=== PATIENT | male | born 1955 | race Caucasian/White ===

== ENCOUNTER → 2018-11-30 11:09 | Outpatient (CLI) | payer MEDICARE, BC, SELFPAY ==
[2018-11-30 14:11] LABS: Alanine Aminotransferase 26 U/L (12-78); Albumin Level 3.6 gm/dL (3.4-5.0); Albumin/Globulin Ratio 1.2 (1.1-1.8); Alkaline Phosphatase 63 U/L (46-116); Anion Gap 9.8 mEq/L (5-15); Aspartate Amino Transferase 15 U/L (15-37); Bilirubin,Total 0.5 mg/dL (0.2-1.0); Blood Urea Nitrogen 11 mg/dL (7-18); Calcium 8.5 mg/dL (8.5-10.1); Carbon Dioxide 31 mmol/L (21.0-32.0); Chloride 105 mmol/L (98-107); Chol/HDL Ratio 2.8 (1-3.5); Cholesterol 127 mg/dL (140-200); Creatinine,Serum 0.94 mg/dL (0.70-1.30); Estimated Glomerular Filt Rate 81 ml/min (>60); GFR (African American) 98 ML/MIN (>60); Globulin 3.1 gm/dl (1.3-3.2); Glucose 105 mg/dL (74-106); HDL Cholesterol 46 mg/dL (27-67); LDL Cholesterol 67 mg/dL (0-130); Potassium 3.8 mmoL/L (3.5-5.1); Sodium 142 mmol/L (136-145); Total Protein,Serum 6.7 gm/dL (6.4-8.2); Triglycerides 68 mg/dL (30-200); VLDL Cholesterol 14 mg/dL (0-40)
== END ==
PROVIDERS: PCP Family Medicine; Visit Provider Family Medicine
DX: I10 Essential (primary) hypertension (principal); E78.5 Hyperlipidemia, unspecified
CPT/HCPCS: 36415; 80053; 80061

== ENCOUNTER → 2021-04-12 14:45 | Outpatient (CLI) | payer MEDICARE, BC, SELFPAY ==
--- NOTE | 2021-04-12 14:55 | XR_ITS ---
PROCEDURE: XR FINGER RT MIN 2V CLINICAL INDICATION: FINGER PAIN, RT COMPARISON: No exams were available for comparison FINDINGS: No fracture or dislocation. There is normal mineralization. The joint spaces are well-preserved. No significant degenerative/arthritic changes. No erosive changes evident. Other findings:Incidental note is made of a small sub cortical cystic area involving the base and ulnar aspect of the 5th metacarpal measuring approximately 3 x 1 mm. The coarse clinical significance. Please correlate as the patient's area of pain or tenderness. IMPRESSION: Tiny subcortical cystic area in the proximal and ulnar aspect of the 5th metacarpal of questionable clinical significance otherwise negative Dictated by: Les Cummings MD 04/12/2021 15:22 Les Cummings MD in [place] 04/12/2021 15:22
== END ==
PROVIDERS: PCP Family Medicine; Visit Provider Family Medicine
DX: M79.644 Pain in right finger(s) (principal)
CPT/HCPCS: 73140

== ENCOUNTER → 2021-04-17 09:28 | Outpatient (CLI) | payer MEDICARE, BC, SELFPAY ==
[2021-04-17 10:42] LABS: Alanine Aminotransferase 19 U/L (12-78); Albumin Level 4.1 g/dl (3.5-5.0); Albumin/Globulin Ratio 1.5 (1.1-1.8); Alkaline Phosphatase 61 U/L (38-126); Anion Gap 7.4 mEq/L (5-15); Aspartate Amino Transferase 28 U/L (17-59); Bilirubin,Total 0.6 mg/dl (0.2-1.3); Blood Urea Nitrogen 10 mg/dl (9-20); Calcium 9.7 mg/dl (8.4-10.2); Carbon Dioxide 34 mmol/L (22.0-30.0); Chloride 102 mmol/L (98-107); Chol/HDL Ratio 2.6 (1-3.5); Cholesterol 141 mg/dl (140-200); Estimated Glomerular Filt Rate 96 ml/min (>60); GFR (African American) 117 ML/MIN (>60); Globulin 2.8 g/dL (1.3-3.2); Glucose 104 mg/dl (74-100); HDL Cholesterol 54 mg/dl (40-60); Potassium 4.4 mmoL/L (3.5-5.1); Sodium 139 mmol/L (136-145); Total Protein,Serum 6.9 g/dl (6.3-8.2); Triglycerides 75 mg/dl (30-150); VLDL Cholesterol 15 mg/dL (0-40)
[2021-04-17 10:53] LABS: Direct LDL Cholesterol 67.88 mg/dL (100-129)
[2021-04-17 11:12] LABS: Prostate Specific Ag Screen 1.5 ng/ml (0.0-4.0)
== END ==
PROVIDERS: Visit Provider Family Medicine
DX: I10 Essential (primary) hypertension (principal); E78.5 Hyperlipidemia, unspecified; Z12.5 Encounter for screening for malignant neoplasm of prostate
CPT/HCPCS: 36415; 80053; 80061; G0103

== ENCOUNTER 2023-10-28 08:31 | Emergency (ER) | payer MEDICARE, BC, SELFPAY ==
[2023-10-28 08:45] VITALS: BP 131/83; PULSE 76; RESP 18; TEMP 36.7; O2SAT 99; BMI 28.0
--- NOTE | 2023-10-28 09:15 | EXP.UTC ---
Discharge Plan Disposition Patient Disposition: Home, Self-Care Condition: Good Prescriptions Prescriptions: New amoxicillin-pot clavulanate [Augmentin] 500-125 mg tablet 1 tab PO TID 10 Days Qty: 30 0RF mupirocin 2 % ointment 1 applic topical BID Qty: 15 0RF No Action simvastatin 40 mg tablet 40 mg PO DAILY lisinopril-hydrochlorothiazide 10-12.5 mg tablet 1 tab PO DAILY Patient Comments: TAKE 1 TABLET BY MOUTH EVERY DAY Referrals Follow up/Referrals: Reed Vu MD [Primary Care Provider] - See instructions Activity Restrictions/Add. Instructions Additional Instructions/Restrictions: monitor for s/s of infection if worsen return antibiotics as ordered Clinical Impressions Clinical Impression: Cat scratch of hand Instructions Patient Instructions: DI for Cat Scratch Disease/Fever, Tetanus, Diphtheria, and Pertussis Vaccine Discharge ED Provider: Abebe ([facility])Lisy [facility] [place] HPI General Stated complaint: cat scratch left hand Mode of Arrival: Ambulatory Source of Information: Patient Limitations: No Limitations Time Seen by Provider: 10/28/23 09:15 Description of Symptoms (Recalled from Triage Doc. by RN): PATIENT C/O CAT SCRATCH TO LEFT HAND YESTERDAY HEENT Symptoms (Recalled from RN notes): No Resp Symptoms (Recalled from RN notes): No Skin Symptoms (Recalled from RN notes): Yes MS Symptoms (Recalled from RN notes): No Functional Status (Recalled from RN notes): WNL History of Present Illness Provider Complaint: 67 yr old male presents for cat scratch to left hand Related Data Home Medications Medication Instructions Recorded Confirmed lisinopril 10 1 tab PO DAILY 10/28/23 10/28/23 mg-hydrochlorothiazide 12.5 mg tablet simvastatin 40 mg tablet 40 mg PO DAILY 10/28/23 10/28/23 Previous Rx's Medication Instructions Recorded amoxicillin 500 mg-potassium 1 tab PO TID 10 days #30 tabs 10/28/23 clavulanate 125 mg tablet (Augmentin) mupirocin 2 % topical ointment 1 applic topical BID #15 grams 10/28/23 Allergies Allergy/AdvReac Type Severity Reaction Status Date / Time No Known Drug Allergies Allergy Unknown Verified 10/28/23 09:00 [NKDA] Worker's Comp Is this a Worker's Comp case?: No [facility] Disclaimer: The information contained in this section may have been updated after the patient was seen, as this information can be updated by other users. Medical History , CURRICULUM AND ASSESSMENT COORDINATOR) Hyperlipidemia Hypertension Social History , CURRICULUM AND ASSESSMENT COORDINATOR) Smoking Status: Smoker, status unknown alcohol intake: never current occupational status: retired Travel in the last 8 weeks: None ROS Obtained: Yes All systems reviewed & no additional complaints except as documented Constitutional Constitutional: Reports system reviewed and no additional complaints, except as documented Eyes Eyes: Reports system reviewed and no additional complaints, except as documented ENT Ears, Nose, Mouth, and Throat: Reports system reviewed and no additional complaints, except as documented Cardiovascular Cardiovascular: Reports system reviewed and no additional complaints, except as documented Respiratory Respiratory: Reports system reviewed and no additional complaints, except as documented Gastrointestinal Gastrointestingal: Reports system reviewed and no additional complaints, except as documented Musculoskeletal Musculoskeletal: Reports system reviewed and no additional complaints, except as documented Integumentary/Breasts Skin/Breast: Reports system reviewed and no additional complaints, except as documented, Reports as per HPI, Reports wounds and Reports other Neurologic Neurologic: Reports system reviewed and no additional complaints, except as documented Endocrine Endocrine: Reports system reviewed and no additional complaints, except as documented Hematologic/Lymphatic Henatologic/Lymphatic: Reports system reviewed and no additional complaints, except as documented Allergic/Immunologic Allergic/Immunologic: Reports system reviewed and no additional complaints, except as documented Physical Exam General General appearance: alert and in no apparent distress Head Head exam: atraumatic Eye Eye exam: Present normal appearance and PERRL ENT ENT exam: Present normal exam, normal oropharynx, mucous membranes moist and TM's normal bilaterally Respiratory Respiratory exam: Present normal lung sounds bilaterally Cardiovascular Cardiovascular exam: Present regular rate and normal rhythm Expanded Upper Extremity Exam Left: Hand L/R back image: 1. small laceration 2. redness Neurological Exam Neurological exam: Present alert and oriented X3 Skin Skin exam: Present other Medical Decision Making Medical Records Medical records reviewed: Yes I reviewed the patient's medical records. Danny Inquiry Pt receiving controlled substance: No Danny was queried for this patient: No Vital Signs: 10/28/23 08:45 Temperature 98.1 F Temperature Source Oral Pulse Rate [Left Brachial] 76 Respiratory Rate 18 Blood Pressure [Left Arm] 131/83 Blood Pressure Mean [Left Arm] 99 Blood Pressure Source [Left Arm] Automatic Cuff Blood Pressure Position [Left Arm] Sitting 02 Sat by Pulse Oximetry 99 Oxygen Delivery Method Room Air Lab Data Lab results reviewed: Yes I reviewed the patient's lab results.
[2023-10-28] MEDS: TET/DIPHTH/PERT-ADULT 0.5ML SYRINGE 0.5 ML IM (09:30)
[2023-10-28 09:32] VITALS: BP 131/83; PULSE 76; RESP 18; TEMP 36.7; O2SAT 99
== END 2023-10-28 09:40 | disposition home or self-care (01) ==
PROVIDERS: Emergency Provider Nurse Practitioner Family; PCP Family Medicine
DX: S60.512A Abrasion of left hand, initial encounter (principal); W55.03XA Scratched by cat, initial encounter; Z23 Encounter for immunization; F17.210 Nicotine dependence, cigarettes, uncomplicated; I10 Essential (primary) hypertension; E78.5 Hyperlipidemia, unspecified
CPT/HCPCS: 90471; 90715; 99204; 99212; G0463

== ENCOUNTER 2024-12-16 11:50 | Outpatient (CLI) | payer MEDICARE, SELFPAY ==
--- OUTSIDE RECORDS SUMMARY | 2024-12-16 11:52 | XMS_ITS ---
Author Organization Unknown Vital Signs BpStanding BpSitting BpSupine Date Temperature HeartRate Weight Hei ght Spo2 Respiration Bmi HeadCircumference FieldCount TimeRecorded NeckCircumferen ce WaistCircumference Pulse 130/80 09/17 00:00 :00 98.6 89 149,0 5,6 24.0 5 6 12/11/2024 13:30:00 128/72 03/26 00:00 :00 98.4 75 153,0 5,6 24.6 9 6 12/11/2024 13:30:00
--- NOTE | 2024-12-16 11:54 | XR_ITS ---
FINAL REPORT CLINICAL HISTORY: PAIN OF RIGHT FINGER -middle at MCP joint COMPARISON: None FINDINGS: AP, lateral and oblique views of the right hand were obtained. There is no prior exam for comparison. There is no acute fracture or dislocation. Mild multijoint degenerative changes present. The soft tissues are normal. IMPRESSION: Mild multijoint degenerative change, with no acute osseous abnormality of the right hand. Reviewed, Interpreted and Dictated by Loreto Medley MD Transcribed by Kitty Hinojosa Authenticated and [facility]
== END 2024-12-16 23:59 | disposition home or self-care (01) ==
PROVIDERS: PCP Family Medicine; Visit Provider Family Medicine
DX: M15.9 Polyosteoarthritis, unspecified (principal)
CPT/HCPCS: 73130

== ENCOUNTER 2024-12-25 07:16 | Outpatient (CLI) | payer MEDICARE, BC, SELFPAY ==
--- OUTSIDE RECORDS SUMMARY | 2024-09-17 09:30 | XMS_ITS ---
Author Organization [facility] Address [address] [facility] [address] [id number] Care Team Providers Care Collector Of Aquarium Specimens Name Role Phone Nehemiah Vu Primary Care Provider Allergies Allergen (clinical drug ingredient) Drug/Non Drug Allergy documented on EMR Reaction Allergy Type Onset Date Status cyclobenzaprine Cyclobenzaprine HCl night sweats Drug Allerg y Active REASON FOR VISIT 6 month check and AWV Medications Medication SIG (Take, Route, Frequency, Duration) Notes Start Date End Date Status Lisinopril-hydroCHLOROthiaz elsa 10-12.5 MG TAKE 1 TABLET BY MOUTH EVERY DAY for 90 Active Simvastatin 40 MG 1 tab(s) orally once a day (at bedtime) Active Lisinopril-hydroCHLOROthiaz elsa 10-12.5 MG 1 tab(s) orally once a day Active Cialis 20 MG 1 tab(s) orally as directed Active Simvastatin 40 MG 1 tab(s) orally once a day (at bedtime) Active Aspirin Adult Low Dose 81 MG 1 tab(s) orally once a day Active Loratadine 10 MG 1 tab(s) orally once a day Active Tadalafil 20 MG TAKE 1 TABLET BY BUD TH DIRECTED for 39 Active Benadryl Allergy 25 MG 1/2 tab orally bid Active Vital Signs Blood pressure systolic 130 mm Hg 09/18/19 25 Blood pressure diastolic 80 mm Hg 025 Heart Rate 89 /min 09/17/2024 Height 66 in 09/17/2024 Weight 149.0 lbs 09/17/2024 BMI 24.05 kg/m2 09/17/2024 Encounters Encounter Location Date Provider Diagnosis [facility] [address] [facility] [address] CATHIE Loyd [id number] 09/17/2024 Nehemiah Vu Adult general medica l examination Z00.00 ; Essential hypertension I10 ; Dyslipidemia E78.5 ; Vasculogenic erectile dysfunction, unspecified vasculogenic erectile dysfunction type N52.9 ; Nocturnal leg cramps G47.62 and BMI 24.0-24.9, adult Z68.24 Assessments Encounter Date Diagnosis (ICD Code) Assessment Notes Treatment Notes Treatment Clinical Notes Section Notes 09/17/2024 Adult general medical examination (ICD-10 - Z00.00) Patient instructed to return to office Annually for Annual Wellness Visits to include annual screenings of Pain assessment, Functional Ability assessment, Cognitive Ability assessment, Fall Risk assessment, Depression screening and Bladder control screening. 09/17/2024 Essential hypertension (ICD-10 - I10) 09/17/2024 Dyslipidemia (ICD-10 - E78.5) 09/17/2024 Vasculogenic erectile dysfunction, unspecified vasculogenic erectile dysfunction type (ICD-10 - N52.9) 09/17/2024 Nocturnal leg cramps (ICD-10 - G47.62) 09/17/2024 BMI 24.0-24.9, adult (ICD-10 - Z68.24) Plan Of Treatment Medication Medication Name Sig Start Date Stop Date Notes Lisinopril-hydroCHLOROthiazi de 10-12.5 MG 1 tab(s) orally once a day Cialis 20 MG 1 tab(s) orally as directed Simvastatin 40 MG 1 tab(s) orally once a day (at bedtime) Treatment Notes Assessment Notes Adult general medical examination Patien t instructed to return to office Annually for Annual Wellness Visits to include annual screenings of Pain assessment, Functional Ability assessment, Cognitive Ability assessment, Fall Risk assessment, Depression screening and Bladder control screening. Next Appt Details Follow Up: 6 Months, Reason: Progress Notes * Reed WESTBROOKDOB: [birth year] (69 yo M)Acc No.[id number]:09/17/2024 Annual Wellness Visit Patient: Micaela MILTONReed WATTS Provider: Nehemiah Vu M.D. :1955 A ge:68 Y S ex:Male Date:09/17/2024 Address:[place], [id number] Subjective: * Chief Complaints: * 1 . 6 month check and AWV. * HPI: H PI: Patient is here today for a scheduled 6 month check up and a Medicare Annual Wellness Visit.. C ardiology: Denies : Chest Pain. D enies : Short of Breath. D enies : Palpitations. D enies : Leg Edema. BloodPressure at Home o ccasionally high if under stress.? P sychology: Has had increased stress dealing with some legal issues. * ROS: O PTHALMOLOGY: Negative for d enies vision issues. * Medical History: H ypertension, Hyperlipidemia, Allergies, Nail fungus, ED, Mallet finger deformity right small finger, Cologuard - negative 10/2021. * Surgical History: c olonoscopy/ Dr. Downs/ negative but only fair prep 05/2016. * Hospitalization/Major Diagno stic Procedure: m joe as a child . * Family History: F ather: , cancer of larynx. M other: , emphysema. 1 brother(s) . 1 son(s) . . 1 brother, diabetes, CABG. * Social History: C URRENT TOBACCO USE S moking Status: Patient does NOT smoke. C affeine: yes, frequency:diet coke. Home smoke detector use: yes. Marital Status: . Past smoking status: no, Smoking status: Does not smoke. Alcohol: Yes, Type: , Frequency: ,Years: , Determination:1-2 beers per week. * Medications: T aking Loratadine 10 MG Tablet 1 tab(s) orally once a day , Taking Aspirin Adult Low Dose 81 MG Tablet Delayed Release 1 tab(s) orally once a day , Taking Benadryl Allergy 25 MG Tablet 1/2 tab orally bid , Taking Tadalafil 20 MG Tablet TAKE 1 TABLET BY MOUTH DIRECTED , Taking Lisinopril-hydroCHLOROthiazide 10-12.5 MG Tablet TAKE 1 TABLET BY MOUTH EVERY DAY , Taking Simvastatin 40 MG Tablet 1 tab(s) orally once a day (at bedtime) , Taking Simvastatin 40 MG Tablet 1 tab(s) orally once a day (at bedtime) , Taking Cialis 20 MG Tablet 1 tab(s) orally as directed , Medication List reviewed and reconciled with the patient * Allergies: C yclobenzaprine HCl: night sweats. Objective: * Vitals: W t:149.0, Temp:98.6, BP:130/80, HR:89, O2 Sat:96% on RA, Nurse:ilana, Ht: 66, BMI:24.05. * Examination: C ardiology: General Appearance: p leasant, NAD. . HEENT: Sclera and conjunctiva clear. Carotid upstroke: n ormal, no bruits. Heart sounds: R RR, normal S1, S2. Murmur, click , gallop: n one. Lungs: c lear, no rales or wheezes. Abdomen: p ositive BS, soft, nontender. Extremities: n o leg edema. . * Physical Examination: G ENERAL: Pain Assessment: P ain level: 0, on a scale of 0-10 (with 10 being extreme pain). F unctional Status Assessment: P atient response to question of how often physical health interferes with daily activities: . Almost never Able to perform ADLs-including meal preparation, grocery shopping, housework, laundry, taking medications or handling finances. Cognitive Status: alert and oriented. Ambulation Status: Fully ambulatory . F all Risk Assessment: I ndependant in ambulation, adequate lighting in home. Patient has fallen or had trouble walking within the past 12 months. D epression Screening: D escribes emotional health as: downhearted over 's health. Bladder Control Screening: D enies problems. Assessment: * Assessment: 1. A dult general medical examination - Z00.00 (Primary) 2 . E ssential hypertension - I10 3 . D yslipidemia - E78.5 4 . V asculogenic erectile dysfunction, unspecified vasculogenic erectile dysfunction type - N52.9 5 . Nocturnal leg cramps - G47.62 6 . B MD 24.0-24.9, adult - Z68.24 ? Plan: * Treatment: 2. E ssential hypertension Refill Lisinopril-hydroCHLOROthiazide Tablet, 10-12.5 MG, 1 tab(s), orally, once a day, 90, Refills 1. 3. D yslipidemia Refill Simvastatin Tablet, 40 MG, 1 tab(s), orally, once a day (at bedtime), 90, Refills 1. ? 4. V asculogenic erectile dysfunction, unspecified vasculogenic erectile dysfunction type Continue Cialis Tablet, 20 MG, 1 tab(s), orally, as directed. * Procedure Codes: G 0439 ANNUAL WELLNESS VST; PPS SUBSQT VST, G2211 Complex e/m visit add on, G0444 ANNUAL DEPRESSION SCREENING 15 MIN, 1090F PRES/ABSN URINE INCON ASSESS, 3288F FALL RISK ASSESSMENT DOCD, 1170F FXNL STATUS ASSESSED, 1126F AMNT PAIN NOTED NONE PRSNT, 1159F MED LIST DOCD IN RCRD, 1003F LEVEL OF ACTIVITY ASSESS, 1036F TOBACCO NON- USER, 3017F COLORECTAL CA SCREEN DOC REV, G8510 NEG SCR Depression PT NOT ELIG F/U/PLN DOC, 3075F SYST BP GE 130 - 139MM HG, 3079F DIAST BP 80-89 MM HG * Preventive Medicine: Counseling: E motional health: D iscussed ways to improve socialization. B ladder control: M ethods of controlling or managing leakage of urine discussed. E xercise: Patient advised to start, increase or maintain level of exercise/physical activity. I njury prevention: F all prevention discussed. Discussed need for cane/walker. Potential trip hazards discussed. Immunizations: P neumococcal r ecommended. I nfluenza r ecommended seasonally. Screening / Special Tests: C olonoscopy 1 08/02/2015 colonoscopy negative to repeat 3-5 yrs, 10/15/2021 negative Cologuard. P SA , normal. * Follow Up: 6 Months * Billing Information: * Visit Code: 83458 Office Visit, Est Pt., Level 3. Modifiers: 25 * Procedure Codes: G0439 ANNUAL WELLNESS VST; PPS SUBSQT VST. G2211 Complex e/m visit add on. G044 ANNUAL DEPRESSION SCREENING 15 MIN. 1090F PRES/ABSN URINE INCON ASSESS. 3288F FALL RISK ASSESSMENT DOCD. 1170F FXNL STATUS ASSESSED. 1126F AMNT PAIN NOTED NONE PRSNT. 1159F MED LIST DOCD IN RCRD. 1003F LEVEL OF ACTIVITY ASSESS. 1036F TOBACCO NON-USER. 3017F COLORECTAL CA SCREEN DOC REV. G8510 NEG SCR Depression PT NOT ELIG F/U/PLN DOC. 3075F SYST BP GE 130 - 139MM HG. 3079F DIAST BP 80-89 MM HG. * Electronic signature of Nehemiah Vu MD on 12/25/2024 at 07:22 AM EDT Sign off status: Pending * Provider: Nehemiah Vu M.D. Date: 0 09/17/2024 Generated for Bessy mackay/Vaughn/eTransmitting on: 0 12/25/2024 07:22 AM EDT History and Physical Notes * HPI (History of Present Illness) Category Sub-Category Detail Notes Category Not es Cardiology Short of Breath Chest Pain Palpitations Leg Edema BloodPressure at Home occasionally high if under stress HPI Patient is here today for a [facility] 6 month check up and a Medicare Annual Wellness Visit. Physical Examination Category Sub-Category Detail Notes Section Note s GENERAL Pain Assessment: Pain level: 0, on a scale of 0-10 (with 10 being extreme pain) Functional Status Assessment: Patient response to question of how often physical health interferes with daily activities: . Almost never Able to perform ADLs-including meal preparation, grocery shopping, housework, laundry, taking medications or handling finances. Cognitive Status: alert and oriented. Ambulation Status: Fully ambulatory Fall Risk Assessment: Independant in amb ulation, adequate lighting in home. Patient has fallen or had trouble walking within the past 12 months Depression Screening: Describes [facility] [employer] as: downhearted over 's health Bladder Control Screening: Denies proble ms Examination Category Sub-Category Detail Notes Category Not es Cardiology Lungs: clear, no rales or wheezes HEENT: Sclera and conjuncti va clear Heart sounds: RRR, normal S1, S2 Abdomen: positive BS, soft, n ontender Carotid upstroke: normal, no bruits Extremities: no leg edema. Murmur, click , gallop: none General Appearance: pleasant, NAD.
--- OUTSIDE RECORDS SUMMARY | 2024-12-16 07:00 | XMS_ITS ---
Author Organization [facility] Address [address] [facility] [address] [id number] Care Team Providers Care Porter Sample Case Name Role Phone Nehemiah Vu Primary Care Provider Priyank Ramos Unavailable [phone] Allergies Allergen (clinical drug ingredient) Drug/Non Drug Allergy documented on EMR Reaction Allergy Type Onset Date Status cyclobenzaprine Cyclobenzaprine HCl night sweats Drug Allerg y Active Results Component Value Reference Range Notes X ray : Hand, right Reviewed date:12/17/2024 11:26:21 AM Interpretation: Performing Lab: Notes/Report: Reason For Referral Diagnosis 1 Pain of right middle finger (M79.644) [facility] Referring Provider First Name Priyank Referring Provider Last Name Rachel Referring Provider Speciality [facility] ctice Referred Provider Cheo Duncan Referred Provider Specialty Orthopedic S urgery General Notes Iraida Abraham 2024 02:13:04 PM > 12/23/2024 at 09:45am; patient informed Referral Priority Routine REASON FOR VISIT Right hand tendon off knuckle Medications Medication SIG (Take, Route, Frequency, Duration) Notes Start Date End Date Status Tadalafil 20 MG TAKE 1 TABLET BY DIRECTED for 39 Active Benadryl Allergy 25 MG 1/2 tab orally bid Active Lisinopril-hydroCHLOROthiaz elsa 10-12.5 MG TAKE 1 TABLET BY MOUTH EVERY DAY for 90 Active Aspirin Adult Low Dose 81 MG 1 tab(s) orally once a day Active Loratadine 10 MG 1 tab(s) orally once a day Active Cialis 20 MG 1 tab(s) orally as directed Active Simvastatin 40 MG 1 tab(s) orally once a day (at bedtime) Active Lisinopril-hydroCHLOROthiaz elsa 10-12.5 MG 1 tab(s) orally once a day Active Vital Signs Blood pressure systolic 122 mm Hg 12/17/19 25 Blood pressure diastolic 68 mm Hg 025 Heart Rate 64 /min 12/16/2024 Height 66 in 12/16/2024 Weight 153.8 lbs 12/16/2024 BMI 24.82 kg/m2 12/16/2024 Encounters Encounter Location Date Provider Diagnosis [facility] [address] [place], [place] [id number] 12/16/2024 Priyank Ramos Pain of right middle finger M79.644 ; Essential hypertension I10 and BMI 24.0-24.9, adult Z68.24 Assessments Encounter Date Diagnosis (ICD Code) Assessment Notes Treatment Notes Treatment Clinical Notes Section Notes 12/16/2024 Pain of right middle finger (ICD-10 - M79.644) Seems to have a subluxation of the extrensor tendon 12/16/2024 Essential hypertension (ICD-10 - I10) 12/16/2024 BMI 24.0-24.9, adult (ICD-10 - Z68.24) Plan Of Treatment Treatment Notes Assessment Notes Pain of right middle finger Seems to hav e a subluxation of the extrensor tendon Referrals Referral Date Details 12/16/2024 12/16/2024, Cheo Herrera nt Next Appt Details Follow Up: prn, Reason: Progress Notes * Reed WESTBROOKDOB: [birth year] (69 yo M)Acc No.[id number]:12/16/2024 Progress Notes Patient: Reed CAMPA Provider: Diamond Ramos M.D. :1955 A ge:69 Y S ex:Male Date:12/16/2024 Address:[id number] Pcp:Nehemiah Vu Subjective: * Chief Complaints: * 1 . Right hand tendon off knuckle. * HPI: W rist/Hand: 69 year old male presents with c/o swelling P t presents today with c/o a tendon tear in the right hand, middle finger. Pt sts that he injured it a week and 2 days ago. Pt sts that he was flicking lent off of his finger and when he flicked he felt a pop and tear. Pt sts that it is not extremely painful but sts that he knows that he has gone long enough without getting checked out. * ROS: D ERMATOLOGY: no R real. n o H bill. G ASTROENTEROLOGY: no N ausea. n o V omiting. U ROLOGY: no D ifficulty urinating. n o B lood in urine. * Medical History: H ypertension, Hyperlipidemia, Allergies, Nail Fungus, ED, Mallet finger deformity right small finger, Cologuard - negative 10/2021. * Surgical History: C olonoscopy/ Dr. Downs/ negative but only fair [...] TABLET BY MOUTH EVERY DAY , Taking Lisinopril-hydroCHLOROthiazide 10-12.5 MG Tablet 1 tab(s) orally once a day , Taking Simvastatin 40 MG Tablet 1 tab(s) orally once a day (at bedtime) , Taking Cialis 20 MG Tablet 1 tab(s) orally as directed , Medication List reviewed and reconciled with the patient * Allergies: C yclobenzaprine HCl: night sweats. Objective: * Vitals: W t: 153.8, Temp: 98.5, BP: 122/68, HR: 64, Nurse: DAVON, Ht: 66, BMI:24.82. * Examination: G eneral Examination: General Appearance: N AD. W rist / Hand: Wrist/Hand: r ight. Inspection: s plint on middle finger. MCP and IP joints: d ifficulty flexing middle finger, some tenderness to palpation at the 3 rd MCP joint. Assessment: * Assessment: 1. P ain of right middle finger - M79.644 (Primary) 2 . E ssential hypertension - I10 3 . B AR 24.0-24.9, adult - Z68.24 Plan: * Treatment: Notes: Seems to have a subluxation of the extrensor tendon? Referral To:Cheo Duncan??Orthopedic Surgery ?Reason: * Procedure Codes: G 2211 Complex e/m visit add on, G8950 PREHTN/HTN BP DOC INDCD F/U DOC, G8752 MOST RECENT SYSTOLIC BP < 140MM HG, G8754 MOST RECENT DIASTOLIC BP < 90MM HG, G8420 BMI<30 AND >=22 CALC & DOCU, 3017F COLORECTAL CA SCREEN DOC REV * Preventive Medicine: Screening / Special Tests: C olonoscopy C ologuard: negative on 10/29/2024. * Follow Up: p rn * Billing Information: * Visit Code: 80580 Office Visit, Est Pt., Level 3. * Procedure Codes: G2211 Complex e/m visit add on. G8950 PREHTN/HTN BP DOC INDCD F/U DOC. G8752 MOST RECENT SYSTOLIC BP < 140MM HG. G8754 MOST RECENT DIASTOLIC BP < 90MM HG. G8420 BMI<30 AND >=22 CALC & DOCU. 3017F COLORECTAL CA SCREEN DOC REV. * Electronic signature of Lupe Ramos MD on 12/25/2024 at 07:22 AM EDT Sign off status: Pending * Provider: Kashmir BrunsonD. Date: 0 12/16/2024 Generated for Bessy mackay/Vaughn/Loitting on: 0 12/25/2024 07:22 AM EDT History and Physical Notes * HPI (History of Present Illness) Category Sub-Category Detail Notes Category Not es Wrist/Hand swelling Pt presents toda y with c/o a tendon tear in the right hand, middle finger. Pt sts that he injured it a week and 2 days ago. Pt sts that he was flicking lent off of his finger and when he flicked he felt a pop and tear. Pt sts that it is not extremely painful but sts that he knows that he has gone long enough without getting checked out Examination Category Sub-Category Detail Notes Category Not es General Examination General Appearance: NAD Wrist / Hand Inspection: splint on middle finger Wrist/Hand: right MCP and IP joints: difficulty flexing m iddle finger, some tenderness to palpation at the 3 rd MCP joint Consultation Request Notes Referral Date Referring Provider Referred Provider Not es 12/16/2024 Priyank Ramos Jason
--- OUTSIDE RECORDS SUMMARY | 2024-12-19 11:30 | XMS_ITS ---
[facility] [address] [facility] [address] [place], [place] [id number] Care Team Providers Care Customer Sales Advisor Name Role Phone Nehemiah Vu Primary Care Provider REASON FOR VISIT tendon in hand Encounters Encounter Location Date Provider Diagnosis [facility] [address] [facility] [address] [place] [id number] 12/19/2024 Nehemiah Vu Plan Of Treatment No Information Progress Notes * Reed WESTBROOKDOB: [birth year] (69 yo M)Acc No.[id number]:12/19/2024 Progress Notes Patient: Reed CAMPA Provider: Nehemiah Vu M.D. :1955 A ge:69 Y S ex:Male Date:12/19/2024 Address:[place] [id number] Subjective: * Chief Complaints: * 1 . Tendon in hand. * Medical History: Objective: * Vitals: Assessment: Plan: * Treatment: * Billing Information: * Visit Code: * Procedure Codes: * Electronic signature of Nehemiah Vu MD on 12/25/2024 at 07:22 AM EDT Sign off status: Pending * Provider: Nehemiah Vu M.D. Date: 12/19/2024 Generated for Printi ng/Faxing/eTransmitting on: 12/25/2024 07:22 AM EDT
--- OUTSIDE RECORDS SUMMARY | 2024-12-25 07:23 | XMS_ITS | Patient Health Record ---
Author Organization [facility] Address [address] [facility] [address] [id number] Care Team Providers Care Wool Presser Name Role Phone Nehemiah Vu Primary Care Provider [phone] Priyank Ramos Unavailable [phone] Allergies Allergen (clinical drug ingredient) Drug/Non Drug Allergy documented on EMR Reaction Allergy Type Onset Date Status cyclobenzaprine Cyclobenzaprine HCl night sweats Drug Allerg y Active Results Component Value Reference Range Notes X ray : Hand, right Reviewed date:12/17/2024 11:26:21 AM Interpretation: Performing Lab: Notes/Report: Cologuard Reviewed date:11/06/2024 09:47:08 PM Interpretation:Negative Performing Lab: Notes/Report: Negative P-Comprehensive Metabolic Pa marques (CMP) Reviewed date:03/28/2024 08:40:05 AM Interpretation:gluc 107 Performing Lab: Notes/Report: Test performed by [employer] [facility] , [address], [place] [address] Aditya Ramsey MD, Starch Treating Assistant CLIA: [id number] Sodium 138 135-145 mmol/L Potassium 3.8 3.5-5.3 mmol/L Chloride 97 97-108 mmol/L CO2 31 22-32 mmol/L Glucose 107 65-99 mg/dL BUN 10 8-23 mg/dL Creatinine 0.90 0.70-1.30 mg/dL Calcium 9.7 8.6-10.4 mg/dL eGFR by Creatinine 92 >59 mL/min/1.73m2 Protein 6.9 6.0-8.3 g/dL Albumin 4.5 3.5-5.3 g/dL Alkaline Phosphatase 68 40-129 IU/L ALT (SGPT) 17 <5-55 IU/L AST (SGOT) 23 <5-46 IU/L Bilirubin, Total 0.9 <0.2-1.2 mg/dL A/G Ratio 1.9 1.1-2.5 P-Lipid Panel Reviewed date:03/28/2024 08:40:05 AM Interpretation:Normal Performing Lab: Notes/Report: Test performed by [facility] [address] , [address], [place] [address] Aditya Ramsey MD, Starch Treating Assistant CLIA: [id number] Cholesterol 166 <200 mg/dL Triglycerides 66 <150 mg/dL HDL Cholesterol 72 >39 mg/dL Cholesterol / HDL Ratio 2.31 0.00-4.99 Ratio Non-HDL Cholesterol 94 <130 mg/dL LDL Cholesterol (Calculation) 81 <130 mg/dL LDL Cholesterol Levels* Less than 100 mg/dL Optimal 100 to 129 mg/dL Near Optimal/ Above Optimal 130 to 159 mg/dL Borderline High 160 to 189 mg/dL High 190 mg/dL and above Very High * Categories as recommended by the 2004 ATPIII guidelines LDL/HDL Ratio 1.1 <3.3 Ratio LDL Cholesterol Patient History Test Date: 09/26/2023 LDL Results: 84 Units: mg/dL % Change: - Test Date: 03/26/2024 LDL Results: 81 Units: mg/dL % Change: -3% P-PSA Reviewed date:03/28/2024 08:40:05 AM Interpretation:Normal Performing Lab: Notes/Report: Test performed by [employer] [address] , [place] [address] Aditya Ramsey MD, Starch Treating Assistant CLIA: [id number] PSA 1.00 <4.00 ng/mL Please note this is an ultrasensitive PSA assay with a lower limit of detection of 0.014 ng/mL. This test is performed by the Kinsey ECLIA methodology. Values obtained with different assay methods or kits cannot be directly compared. Reason For Referral Diagnosis 1 Pain of right middle finger (M79.644) Referral Organization [facility] Referring Provider First Name Priyank Referring Provider Last Name Rachel Referring Provider Speciality Family [facility] Referred Provider Cheo Duncan Referred Provider Specialty Orthopedic S urgery General Notes Iraida Abraham 2024 02:13:04 PM > 12/23/2024 at 09:45am; patient informed Referral Priority Routine Medications Medication SIG (Take, Route, Frequency, Duration) Notes Start Date End Date Status Cialis 20 MG 1 tab(s) orally as directed Active Simvastatin 40 MG 1 tab(s) orally once a day (at bedtime) Active Tadalafil 20 MG TAKE 1 TABLET BY BUD TH DIRECTED for 39 Active Benadryl Allergy 25 MG 1/2 tab orally bid Active Lisinopril-hydroCHLOROthiaz elsa 10-12.5 MG 1 tab(s) orally once a day Active Lisinopril-hydroCHLOROthiaz elsa 10-12.5 MG TAKE 1 TABLET BY MOUTH EVERY DAY for 90 Active Aspirin Adult Low Dose 81 MG 1 tab(s) orally once a day Active Loratadine 10 MG 1 tab(s) orally once a day Active Immunizations Vaccine Route Administration Date Status Comme nts xFluzone (6mos and older)-trivalent IM Intramuscular 05/11/2012 Administered xFluzone (6mos and older)-trivalent IM Intramuscular 05/31/2013 Administered Tetanus Tdap-Adacel (over 7yrs) Unknown 10/28/2023 Administered Prevnar (PCV13) IM Intramuscular 03/13/2018 Administered PNEUMOVAX 23 VACCINE IM Intramuscular 10/25/2016 Administe red PNEUMOVAX 23 VACCINE IM Intramuscular 02/28/2020 Administe red Fluzone High Dose (65yr and older) IM Intramuscular 04/06/2020 Administered Fluzone High Dose (65yr and older) IM Intramuscular 04/16/2021 Administered Fluzone High Dose (65yr and older) IM Intramuscular 03/28/2023 Administered COVID 19 Moderna Unknown 09/10/2020 Administered COVID 19 Moderna Unknown 10/08/2020 Administered COVID 19 Moderna Unknown 06/17/2021 Administered Problems Problem Type SNOMED Code ICD Code Onset Dates Problem Status W/U Status Risk Notes Problem Essential hypertension (08817163) Essential hypertension (I10) Active confirmed Problem Cramp in lower leg associated with rest (159408823) Nocturnal leg cramps (G47.62) Active confirmed Problem Pure hypercholesterolemia (403579382) Pure hypercholesterolemia (E78.0) Active confirmed Problem Vasculopathic erectile dysfunction (disorder) (1785504304646) Vasculogenic erectile dysfunction, unspecified vasculogenic erectile dysfunction type (N52.9) Active confirmed Problem 786785649 Dyslipidemia (E78.5) Active confirmed Vital Signs Heart Rate 64 /min 12/16/2024 Blood pressure diastolic 68 mm Hg 12/16/2024 Height 66 in 12/16/2024 Blood pressure systolic 122 mm Hg 12/16/2024 Weight 153.8 lbs 12/16/2024 BMI 24.82 kg/m2 12/16/2024 Encounters Encounter Location Date Provider Diagnosis [facility] [address] [facility] [address] [place] [id number] 03/26/2024 Nehemiah Vu Essential hypertensi on I10 ; Dyslipidemia E78.5 ; Vasculogenic erectile dysfunction, unspecified vasculogenic erectile dysfunction type N52.9 ; Nocturnal leg cramps G47.62 and Screening for prostate cancer Z12.5 [facility] [address] [facility] 36 [facility] [address] [place], [place] [id number] 09/17/2024 R Johnny Vu Adult general medica l examination Z00.00 ; Essential hypertension I10 ; Dyslipidemia E78.5 ; Vasculogenic erectile dysfunction, unspecified vasculogenic erectile dysfunction type N52.9 ; Nocturnal leg cramps G47.62 and BMI 24.0-24.9, adult Z68.24 [facility] [address] [facility] [address] [place], [place] [id number] 12/16/2024 Priyank [place] Pain of right middle finger M79.644 ; Essential hypertension I10 and BMI 24.0-24.9, adult Z68.24 [facility] 36 [facility] [address] [place], [place] [id number] 03/28/2024 [facility] [address] [facility] 36 [facility] [address] [place], [place] [id number] 11/06/2024 [facility] [address] [facility] 36 [facility] [address] [place], [place] [id number] 12/17/2024 Priyank [place] Assessments Encounter Date Diagnosis (ICD Code) Assessment Notes Treatment Notes Treatment Clinical Notes Section Notes 03/26/2024 Essential hypertension (ICD-10 - I10) 03/26/2024 Dyslipidemia (ICD-10 - E78.5) 09/17/2024 Essential hypertension (ICD-10 - I10) 09/17/2024 Adult general medical examination (ICD-10 - Z00.00) Patient instructed to return to office Annually for Annual Wellness Visits to include annual screenings of Pain assessment, Functional Ability assessment, Cognitive Ability assessment, Fall Risk assessment, Depression screening and Bladder control screening. 12/16/2024 Essential hypertension (ICD-10 - I10) 12/16/2024 Pain of right middle finger (ICD-10 - M79.644) Seems to have a subluxation of the extrensor tendon 12/16/2024 BMI 24.0-24.9, adult (ICD-10 - Z68.24) 09/17/2024 Dyslipidemia (ICD-10 - E78.5) 03/26/2024 Vasculogenic erectile dysfunction, unspecified vasculogenic erectile dysfunction type (ICD-10 - N52.9) 03/26/2024 Nocturnal leg cramps (ICD-10 - G47.62) 09/17/2024 Vasculogenic erectile dysfunction, unspecified vasculogenic erectile dysfunction type (ICD-10 - N52.9) 09/17/2024 Nocturnal leg cramps (ICD-10 - G47.62) 03/26/2024 Screening for prostate cancer (ICD-10 - Z12.5) 09/17/2024 BMI 24.0-24.9, adult (ICD-10 - Z68.24) Plan Of Treatment No Information Insurance Providers Payer Name Payer Address Payer Phone Subscriber Number Group Number Insured Name Patient Relationship to Insured Coverage Start Date Coverage End Date MEDICARE PART B [address] [address] [place] [address] [id number] Reed Bishop Self - patient is the insured [employer] [address] [place] [address] [id number] Reed Bishop Self - patient is the insured Medications Administered Medication Instructions Date of Administration Dosage Notes Dexamethasone 10/14/2011 1 mL Medical (General) History Medical History History ICD Code Hypertension Hyperlipidemia Allergies Nail Fungus ED 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 Downs/ negative but only fair prep 05/2016 Hospitalization History Reason Date(Month/Year) mono as a child
--- NOTE | 2024-12-25 07:30 | MR_ITS ---
FINAL REPORT CLINICAL HISTORY: pain and swelling at the MCP joint of the 3rd digit. nki COMPARISON: None FINDINGS: Multiplanar MR imaging was obtained of the right hand. There is minimal degenerative cyst formation within the lateral aspect of the distal 3rd metacarpal measuring up to 4 mm. There is no evidence of marrow edema. Flexor and extensor tendons are intact. There is no soft tissue inflammation. IMPRESSION: Mild degenerative cyst formation distal 3rd metacarpal without associated marrow edema or soft tissue abnormality. Reviewed, Interpreted and Dictated by Andrea Malik MD Transcribed by Jannet Mora Authenticated and . [facility]
== END 2024-12-25 23:59 | disposition home or self-care (01) ==
LOC: RAD 07:21
PROVIDERS: PCP Family Medicine; Visit Provider Physician Assistant
DX: M85.641 Other cyst of bone, right hand (principal)
CPT/HCPCS: 73218